=== PATIENT | female | born 1955 | race Caucasian/White ===

== ENCOUNTER 2024-08-08 16:48 | Emergency (ER) ==
[2024-08-08] MEDS ORDERED: Acetaminophen 500 MG TAB ONE ×2 (17:50)
[2024-08-08] MEDS ORDERED: Ketorolac Tromethamine 30 MG (1 mL) VIAL ONE (18:17)
[2024-08-08] MEDS ORDERED: Orphenadrine Citrate 100 MG ER.TAB ONE (18:32)
== END 2024-08-08 18:35 | disposition home or self-care (01) ==
LOC: ERS 16:48
DX: M54.42 Lumbago with sciatica, left side (principal); F17.210 Nicotine dependence, cigarettes, uncomplicated
CPT/HCPCS: 72100; 96372; 99283; J1885

== ENCOUNTER 2024-08-11 16:05 | Emergency (ER) | payer MEDICARE ==
[2024-08-11] MEDS ORDERED: traMADol HCl 50 MG TAB ONE (17:39)
[2024-08-11] MEDS ORDERED: Lidocaine 4% Patch ONE (17:40)
== END 2024-08-11 18:00 | disposition home or self-care (01) ==
LOC: ERS 16:05
DX: M54.42 Lumbago with sciatica, left side (principal); F17.210 Nicotine dependence, cigarettes, uncomplicated; E03.9 Hypothyroidism, unspecified; Z79.899 Other long term (current) drug therapy
CPT/HCPCS: 99282

== ENCOUNTER 2024-08-16 12:02 | Emergency (ER) | payer MEDICARE, SELFPAY ==
[2024-08-16] MEDS ORDERED: HYDROcodone/Acetaminophen 10/325 mg Tablet ONE (15:24)
[2024-08-16] MEDS ORDERED: predniSONE 20 MG TAB ONE (15:24)
[2024-08-16] MEDS ORDERED: Ondansetron ODT 4 MG TAB ONE (15:36)
== END 2024-08-16 15:41 | disposition home or self-care (01) ==
LOC: ERS 12:02
DX: M54.42 Lumbago with sciatica, left side (principal); F17.210 Nicotine dependence, cigarettes, uncomplicated
CPT/HCPCS: 99282; J7512; Q0162